=== PATIENT | female | born 1935 | race Caucasian/White ===

== ENCOUNTER → 2016-09-23 | Outpatient (CLI) | payer MEDICARE | END | disposition home or self-care (01) | LOC: GMAJ 12:18 | PROVIDERS: ATTEND Family Medicine | DX: I10 Essential (primary) hypertension (principal) ==

== ENCOUNTER → 2017-01-04 | Outpatient (CLI) | payer MEDICARE | END | disposition home or self-care (01) | LOC: GMA 17:23 | PROVIDERS: ATTEND Nurse Practitioner Family | DX: N39.0 Urinary tract infection, site not specified (principal) ==

== ENCOUNTER → 2017-05-22 | Outpatient (CLI) | payer MEDICARE | LOC: GMAJ 10:28 | PROVIDERS: ATTEND Family Medicine | DX: I10 Essential (primary) hypertension (principal) ==

== ENCOUNTER → 2019-03-28 | Outpatient (CLI) | payer MEDICARE | LOC: LAB.O 08:23 | PROVIDERS: ATTEND Surgery | DX: K52.9 Noninfective gastroenteritis and colitis, unspecified (principal) ==

== ENCOUNTER → 2019-04-22 | Outpatient (CLI) | payer MEDICARE ==
--- NOTE | 2019-04-23 20:28 | MAM ---
EXAM DESCRIPTION: 3D Screening BILATERAL : Digital Mammography. CLINICAL HISTORY: 83 years Female ANNUAL SCREENING . No complaints. No personal or family history of breast cancer. Menarche age 11. Childbirth age 18. Postmenopausal age unknown. HRT 5 or more years ago.. Lifetime risk of developing breast cancer (Tyrer-Cuzick model)(%): 1.5. COMPARISON: 2-D digital screening bilateral mammography 12/12/2015.. No prior reports available. TECHNIQUE: Bilateral CC and MLO projection full-field images, digital tomosynthesis mammographic technique Bilateral digital 2-D full-field MLO images. CAD not available for tomosynthesis or 2-D images. FINDINGS: The breast parenchymal density pattern is: Scattered areas of fibroglandular density. No skin thickening or nipple retraction. Bilateral Mole markers. Nodular densities upper outer quadrant posterior left breast most likely lymph nodes. Bilateral vascular calcifications. Bilateral solitary microcalcifications. No new focal, stellate mass or density, focal asymmetry , and no suspicious microcalcifications bilaterally. Stable mammograms compared to prior study. Taking into account, differences in mammographic technique. IMPRESSION: Benign exam. BIRAD CATEGORY: 2 BENIGN FINDINGS. RECOMMENDATIONS: FOLLOW UP: Routine digital bilateral mammographic screening, one year interval from April 2018. Written communication explaining the IMPRESSION and follow-up, will be mailed to the patient and referring health care provider. According to the [employer], yearly mammograms are recommended starting at age 40 and continuing as long as a woman is in good health. Any breast change noted on a breast self-exam should be reported promptly to the patient's healthcare provider. Breast MRI is recommended for women with an approximately 20-25% or greater lifetime risk of breast cancer, including women with a strong family history of breast or ovarian cancer and women who have been treated for Hodgkin's disease. A negative mammographic report should not delay tissue diagnosis in patients with significant clinical history or physical findings. Extremely dense breast tissue limits the sensitivity of digital mammography. Electronically signed by: Solis Bruno MD 04/23/2019 8:27 PM [facility]
== END ==
LOC: MAMMO 09:40
PROVIDERS: ATTEND Family Medicine
DX: Z12.31 Encounter for screening mammogram for malignant neoplasm of breast (principal)

== ENCOUNTER 2019-04-26 05:36 | Day surgery (SDC) | payer MEDICARE ==
[2019-04-26] MEDS ORDERED: LIDOCAINE 1% 10 ML VIAL INJ ONE (07:00)
[2019-04-26] MEDS ORDERED: PROPOFOL 200 MG/20 ML VIAL IV ONE (07:00)
[2019-04-26] MEDS ORDERED: LACTATED RINGERS 1,000 ML ONE (07:17)
[2019-04-26] MEDS ORDERED: KETAMINE HCL 100 MG/ML VIAL ONE (08:29)
--- NOTE | 2019-04-26 10:17 | OP ---
DATE OF PROCEDURE: 04/26/19 PREOPERATIVE DIAGNOSIS: 1. Change in bowel habits. POSTOPERATIVE DIAGNOSIS: 1. Colonic polyps. PROCEDURE: 1. Colonoscopy with multiple biopsies. SURGEON: Atif Hendrickson MD ANESTHESIA: General. FINDINGS: As described. PROCEDURE: General anesthesia was induced in the lateral position. The patient was made comfortable. Digital rectal exam was normal, maybe a small thrombosed hemorrhoid internally. The colonoscope was then passed. The sigmoid was a bit tortuous, but not strictured with evidence of diverticulosis with some hypertonicity, ultimately getting to the cecum. Two small polyps were biopsied in the cecum. We had taken one in, but on retrieval, at the hepatic flexure #1, there was also a biopsy taken of a 2 mm polyp, an additional snare done near the hepatic flexure of an approximately 4 mm polyp. Two additional, one in the proximal transverse was a bit larger, almost 2 cm that was taken with a cold snare without difficulty, no bleeding, and then additional at 30 cm was a smaller polyp about 1 cm or so taken with the snare. In all, five polyps were taken. The cecal biopsy included two polyps right next to each other. Upon withdrawal, at 30 cm, we did see a small blood clot in the wall, but no active bleeding. This was likely where we had taken the snare initially. Retroflexion was normal but for some small hemorrhoids and that tiny thrombosed hemorrhoid that I saw. Air was aspirated and the scope withdrawn. The patient tolerated the procedure and was awakened and taken to Recovery to be discharged. #[id number] cc: Atif Pichardo MD [facility]
[2019-04-26 12:31] VITALS: BP 135/70; TEMP 97.4; O2SAT 98
== END 2019-04-26 10:00 | disposition home or self-care (01) ==
LOC: AMB 05:36
PROVIDERS: ATTEND Surgery
DX: R19.4 Change in bowel habit (principal); D12.3 Benign neoplasm of transverse colon; K63.5 Polyp of colon; K64.5 Perianal venous thrombosis; I10 Essential (primary) hypertension; E78.00 Pure hypercholesterolemia, unspecified; K21.9 Gastro-esophageal reflux disease without esophagitis; M81.0 Age-related osteoporosis without current pathological fracture; Z88.5 Allergy status to narcotic agent; Z88.8 Allergy status to other drugs, medicaments and biological substances; Z90.710 Acquired absence of both cervix and uterus; Z79.899 Other long term (current) drug therapy
CPT/HCPCS: 00811; 45380; 45385; 88305; J3490; J7120